=== PATIENT | female | born 1985 | race Two or more races ===

== ENCOUNTER 2025-04-05 20:46 | Emergency (ER) | payer MEDICAID ==
[~2025-04-05] VITALS: Ht 167.6 cm; Wt 100.0 kg
--- NOTE | 2025-04-05 20:57 | ED.PDOC ---
SOB-HPI HPI Comments 39 year old female was BIBA with a prior Hx of Asthma and a Cat allergy associated to the c/c of SOB and a Allergic reaction to a cat. Per EMS pt was home around 1x hour ago when there was a cat in her home. Pt is noted to be currently on O2 and is improving. Pt denies any other associated symptoms, modifiers, recent injuries or sick contacts present at this time. Time Seen by MD: 20:51 Reviewed notes: Nurses Notes, Subject Scientific Research Notes, Medications, Allergies Information Source: Patient, Emergency Med Personnel Mode of Arrival: EMS Severity: Moderate Timing: Minutes Duration: Since onset, Minutes Context: At Rest PE Risk Factors: None History of: Asthma Prehospital treatment: Oxygen Modifying Factors: Nothing Associated Signs and Symptoms: None Radiation: No Radiation Past Medical History PAST MEDICAL HISTORY: Asthma Surgical History: Denies all surgeries SENIOR GENETIC COUNSELOR History: No Pertinent SENIOR GENETIC COUNSELOR History Family History Family History: Reviewed,noncontributory to illness, No family hx of Cancer, No family hx of DM, No family hx of Heart nino, No family hx of HTN, No family hx ofKidney nino, No family hx of Liver nino, No family hx of Lung nino, No family hx of Stroke Social History Smoker: Non-Smoker Alcohol: Denies ETOH Use Drugs: Denies Drug Use Lives In: Home Constitutional: denies: chills, diaphoresis, fatigue, fever, malaise, sweats, weakness, others EENTM: denies: blurred vision, double vision, ear bleeding, ear discharge, ear drainage, ear pain, ear ringing, eye pain, eye redness, hearing loss, mouth pain, mouth swelling, nasal discharge, nose bleeding, nose congestion, nose pain, photophobia, tearing, throat pain, throat swelling, voice changes, others Respiratory: reports: SOB at rest, shortness of breath; denies: cough, hemoptysis, orthopnea, SOB with excertion, stridor, wheezing, others Cardiovascular: denies: chest pain, dizzy spells, diaphoresis, Dyspnea on exertion, edema, irregular heart beat, left arm pain, lightheadedness, palpitations, PND, syncope, others Gastrointestinal: denies: abdomen distended, abdominal pain, blood streaked bowels, constipated, diarrhea, dysphagia, difficulty swallowing, hematemesis, melena, nausea, poor appetite, poor fluid intake, rectal bleeding, rectal pain, vomiting, others Genitourinary: denies: abnormal vagina bleeding, burning, dyspareunia, dysuria, flank pain, frequency, hematuria, incontinence, pain, , vagina discharge, urgency, others Neurological: denies: dizziness, fainting, headache, left sided numbness, left sided weakness, numbness, paresthesia, pre-existing deficit, right sided numbnes s, right sided weakness, seizure, speech problems, tingling, tremors, weakness, others Musculoskeletal: denies: back pain, gout, joint pain, joint swelling, muscle pain, muscle stiffness, neck pain, others Integumetry: denies: bruises, change in color, change in hair/nails, dryness, laceration, lesions, lumps, rash, wounds, others Allergic/Immunocompromised: denies: Difficulty Healing, Frequent Infections, Hives, Itching, others Hematologic/Lymphatic: denies: anemia, blood clots, easy bleeding, easy bruising, swollen glands, others Endocrine: denies: excessive hunger, excessive sweating, excessive thirst, excessive urination, flushing, intolerance to cold, intolerance to heat, unexplained weight gain, unexplained weight loss, others Psychiatric: denies: anxiety, bipolar disorder, depression, hopeless, panic disorder, schizophrenia, sleepless, suicidal, others All Other Systems: Reviewed and Negative Physical Exam General Appearance: Moderate Distress, Obese HEENT: Pharynx Normal Neck: Full Range of Motion, Normal, Normal Inspection Respiratory: Chest Non-Tender, Lungs Clear, Normal Breath Sounds, Wheezing Cardiovascular: No Edema, Normal Peripheral Pulses, Regular Rate/Rhythm Breast Exam: Deferred Gastrointestinal: Non Tender, Soft Genitalia: Deferred Pelvic: Deferred Rectal: Deferred Extremities: No calf tenderness, Normal range of motion, Non-tender, No pedal edema Musculoskeletal : Apperance: Normal Neurologic: Alert, No Motor Deficits, Normal Mood Cerebellar Function: Normal Reflexes: Normal Skin: Dry, Normal Color, Warm Lymphatic: No Adenopathy Was a procedure done? Was a procedure done?: No Differential Dx Differential Diagnosis: Asthma, Bronchitis, CHF, COPD, Pneumonia, Pharyngitis, URI, Other X-Ray, Labs, Meds, VS Vital Signs Date Time Temp Pulse Resp B/P (MAP) Pulse Ox O2 Delivery O2 Flow Rate FiO2 04/05/25 23:10 92 95 128/82 (97) 100 04/05/25 21:09 98.6 94 98 124/81 (95) 100 98.6 04/05/25 21:06 20 97 Nasal Cannula* 3 32 04/05/25 21:05 95 18 100 Nasal Cannula* 2 28 04/05/25 20:56 98.3 81 24 150/109 (123) 100 98.3 04/05/25 20:54 79 Current Medications Medications (Trade) Dose Ordered Sig/Walker Route Start Time Stop Time Status Last Admin Albuterol (Ventolin Medneb) 5 mg ONCE ONCE NEB 04/05/25 21:00 04/05/25 21:01 DC 04/05/25 21:05 Ipratropium [place] (Atrovent Medneb) 0.5 mg ONCE ONCE NEB 04/05/25 21:00 04/05/25 21:01 DC 04/05/25 21:05 Methylprednisolone Sodium Succinate (Solu Medrol) 125 mg ONCE ONCE IV 04/05/25 21:00 04/05/25 21:01 DC 04/05/25 21:00 Magnesium Sulfate/ Dextrose 100 ml @ 100 mls/hr ONCE ONCE IV 04/05/25 21:00 04/05/25 21:59 DC 04/05/25 21:00 PATIENT: ERICA HAWK ACCT: [id number] UNIT: [id number] : 1985 LOC: ER ROOM / BED: / AGE / SEX: 39 / F ADM STATUS: REG ER SERVICE 55 ORDERING PHYSICIAN: IMELDA GUAN MD PROCEDURE(s): CXRP - CHEST PORTABLE REASON: sob ORDER NUMBER(s): [id number], ACCESSION NUMBER(s): [id number] CHEST RADIOGRAPH Indication: sob Technique: Single frontal view of the chest was obtained COMPARISON: None FINDINGS: Lines and Tubes: None Lungs: Clear. Mild elevation of right hemidiaphragm. Pleura: No effusion. No pneumothorax. Cardiomediastinal contours: Unremarkable IMPRESSION: No acute disease. Time of 1ST Reevaluation: 21:22 Reevaluation 1ST: Unchanged Patient Education/Counseling: Diagnosis, Treatment Family Education/Counseling: No Family Present Departure 1 Departure Time of Disposition: 23:00 Impression: Primary Impression: Allergic reaction Additional Impression: Bronchospasm, acute Disposition: HOME / SELF CARE / HOMELESS Condition: Stable e-Prescriptions Prednisone (Prednisone) 20 Mg Tab 20 MG PO BID for 5 Days, #10 TAB Prov: IMELDA GUAN MD 04/05/25 Albuterol Sulfate (Albuterol Sulfate Hfa) 108 Mcg/Act Aer 108 MCG IN Q6HP PRN, #1 AER 3 Refills Prov: IMELDA GUAN MD 04/05/25 Discharged With: Self Critical Care Note Critical Care Time?: No Stability Stability form required: No Heart Score Heart Score: Heart Score Response (Comments) Value History Slightly Suspicious 0 EKG Normal 0 Age <45 0 Risk Factors 1 or 2 risk factors 1 Troponin N/A 0 Total 1 I personally scribed for IMELDA GUAN MD ([email or web address]) on 04/05/25 at 20:57. Electronically submitted by Marc Maza ([email or web address]). I personally scribed for IMELDA GUAN MD ([email or web address]) on 04/05/25 at 22:23. Electronically submitted by Marc Maza ([email or web address]). I personally scribed for IMELDA GUAN MD ([email or web address]) on 04/05/25 at 22:28. Electronically submitted by Marc Maza ([email or web address]). IMELDA GUAN MD April 05, 2025 20:57
[2025-04-05] MEDS: MAGNESIUM SULFATE 1GM/100ML 100 ML IV ONE (21:00)
[2025-04-05] MEDS: methylPREDNISolone SOD SUCC 125 MG/2 ML VL IV ONE (21:00)
[2025-04-05 21:05] VITALS: PULSE 95; RESP 18; O2SAT 100
[2025-04-05] MEDS: IPRATROPIUM BROM 0.5 MG/2.5ML INH SOL NEB ONE (21:05)
[2025-04-05] MEDS: ALBUTEROL SULF 2.5 MG/0.5ML(0.5%) NEB SOLN NEB ONE (21:05)
[2025-04-05 21:09] VITALS: TEMP 98.6
--- NOTE | 2025-04-05 22:21 | DVH ---
CHEST RADIOGRAPH Indication: sob Technique: Single frontal view of the chest was obtained COMPARISON: None FINDINGS: Lines and Tubes: None Lungs: Clear. Mild elevation of right hemidiaphragm. Pleura: No effusion. No pneumothorax. Cardiomediastinal contours: Unremarkable IMPRESSION: No acute disease.
[2025-04-05] MEDS ORDERED: PRED20TA2 PO (22:29)
[2025-04-05] MEDS ORDERED: ALBU108A5 IN (22:29)
[2025-04-05 23:10] VITALS: BP 128/82; PULSE 92; RESP 95; O2SAT 100
--- NOTE | 2025-04-14 12:14 | ECG ---
[facility], [place] Test Date: 2025-04-05 Test Time: 20:54:39 Pat Name: ERICA HAWK Department: ED Room: Gender: F C Engineer: : 1985 Requested By: IMELDA GUAN Order Number: [id number] Reading MD: Jeffy Armstrong Measurements Intervals [place] Rate: 79 P: 10 [place]: 135 QRS: 29 QRSD: 110 T: 15 QT: 459 QTc: 527 Interpretive Statements Sinus rhythm RSR' in V1 or V2, probably normal variant ST elev, probable normal early repol pattern Prolonged QT interval Electronically Signed On 04-16-2025 14:41:33 PDT by Jeffy Armstrong Please click the below link to view image of tracing.
== END 2025-04-05 23:49 | disposition home or self-care (01) ==
LOC: EDBD 20:46 → ER 20:54
DX: J30.81 Allergic rhinitis due to animal (cat) (dog) hair and dander (principal); J98.01 Acute bronchospasm
CPT/HCPCS: 71045; 93005; 94640; 96365; 96375; 99284; J2919; J3475